=== PATIENT | male | born 1985 | race Caucasian/White ===

== ENCOUNTER 2025-05-06 20:38 | Emergency (ER) | payer MEDICAID ==
[~2025-05-06] VITALS: Ht 167.6 cm; Wt 72.7 kg
[2025-05-06 20:56] VITALS: TEMP 98.4
[2025-05-06 21:21] LABS: PLATELET COUNT (AUTO) 212 K/uL (150-450); RED BLOOD CELL COUNT(AUTO) 4.76 MIL/uL (4.50-5.90); RED CELL DISTRIBUTION WIDTH 13.3 % (11.5-14.5); WHITE BLOOD COUNT (AUTO) 7.7 K/uL (4.5-11.0)
[2025-05-06 21:30] LABS: CALCIUM, TOTAL 8.6 mg/dL (8.8-10.5); CREATININE 0.86 mg/dL (0.60-1.30); GLOMERULAR FILTR. RATE CALC > 60 mL/min (>60); GLUCOSE,RANDOM 107 mg/dL (70-110); SODIUM SERUM 135 mmol/L (136-145); UREA NITROGEN, BLOOD 16 mg/dL (7-18)
[2025-05-06] MEDS: ACETAMINOPHEN 500 MG TABLET PO ONE (21:54)
[2025-05-07] MEDS ORDERED: POLY17PO62 PO (00:13)
[2025-05-07 00:30] VITALS: BP 127/74; PULSE 69; RESP 16; O2SAT 99
== END 2025-05-07 01:06 | disposition home or self-care (01) ==
LOC: EMS 20:41
DX: K62.5 Hemorrhage of anus and rectum (principal); K59.00 Constipation, unspecified
CPT/HCPCS: 74018; 80048; 85025; 99284; 36415-L1; 36415-TC